=== PATIENT | female | born 1975 | race Caucasian/White ===

== ENCOUNTER 2016-11-01 22:42 | Emergency (ER) | payer OTHER ==
[2016-11-01 23:02] VITALS: BP 134/92
[2016-11-01] MEDS ORDERED: CYCLOBENZAPRINE 10 MG TABLET PO STA (23:38)
[2016-11-01] MEDS ORDERED: KETOROLAC 60 MG/2 ML VIAL IM STA (23:38)
[2016-11-01] MEDS ORDERED: DEXAMETHASONE 10 MG/ML VIAL PO STA (23:38)
--- NOTE | 2016-11-01 23:40 | ED Physician Documentation ---
History of Present Illness - Stated complaint Stated Complaint: NECK PX - Chief complaint Chief Complaint: General - History obtained from History obtained from: Patient - History of Present Illness Timing: Today Pain level max: 6 Pain level now: 5 Improved by: Rest Worsened by: movement - Additonal information Additional information: Patient is a 41-year-old female who presents to the emergency department with right shoulder and right arm pain that radiates down the right arm into the right fifth digit. Occasional tingling in that arm as well. She is currently being seen by physical therapy for her left arm for similar symptoms. No swelling. No trauma. 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 : None HEENT: None Psych: Depression, Bipolar disorder Musculoskeletal: Chronic back pain Derm: None - Past Surgical History 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 - Present Medications Home Medications: Ambulatory Orders Medication Instructions Recorded Confirmed Cyclobenzaprine [Flexeril] 10 mg PO TID PRN #20 tablet 11/01/16 Meloxicam [Mobic] 7.5 mg PO BID PRN #20 tablet 11/01/16 - Allergies Allergies/Adverse Reactions: Allergies Allergy/AdvReac Type Severity Reaction Status Date / Time No Known Drug Allergies Allergy Verified 11/01/16 23:02 - Social History Does the pt smoke?: No Smoking Status: Never smoker Does the pt drink ETOH?: Yes Does the pt have substance abuse?: No - Immunizations Immunizations are current?: Yes - POLST Patient has POLST: No PD ED PE NORMAL - Vitals Vital signs reviewed: Yes - General General: Alert and oriented X 3, No acute distress - HEENT HEENT: Moist mucous membranes - Neck Neck: Supple, no meningeal sign, No bony TTP, Other (Positive Spurling test to the right) - Cardiac Cardiac: RRR - Respiratory Respiratory: No respiratory distress, Clear bilaterally - Abdomen Abdomen: Soft, Non tender - Back Back: No spinal TTP - Derm Derm: Warm and dry - Extremities Extremities: No deformity, No tenderness to palpate, No edema - Neuro Neuro: Alert and oriented X 3, instrument and controls technician 2-12 intact, No motor deficit, No sensory deficit - Psych Psych: Normal mood, Normal affect Results - Vitals Vitals: Oxygen O2 Source Room air PD MEDICAL DECISION MAKING - ED course Complexity details: considered differential, d/w patient ED course: Patient is a 41-year-old female with what appears to be a right cervical radiculopathy. Will place on steroids and anti-inflammatories for home and follow-up with her doctor. She is well-appearing, nontoxic. We will also place on muscle relaxants. No fevers. No trauma. No DVT. Patient counseled regarding signs and symptoms for which I believe and urgent re-evaluation would be necessary. Patient with good understanding of and agreement to plan and is comfortable going home at this time This document was made in part using voice recognition software. While efforts are made to proofread this document, sound alike and grammatical errors may occur. Departure - Departure Disposition: Home, Self Care Clinical Impression: Cervical radiculopathy Condition: Good Instructions: ED Cervical Radiculopathy Follow-Up: Adamaris Garcia DO [Primary Care Provider] - Within 1 week Prescriptions: Cyclobenzaprine [Flexeril] 10 mg PO TID PRN #20 tablet PRN Reason: Spasms Meloxicam [Mobic] 7.5 mg PO BID PRN #20 tablet PRN Reason: pain Comments: Return if you worsen. This should improve over the next few days. Your blood pressure was elevated today on check in to the emergency department. This does not mean that you have hypertension, it is a common phenomenon to check into the emergency department and have elevated blood pressure. I recommend that you see your primary care physician within the week to have it rechecked when you're feeling better. Discharge Date/Time: 11/02/16 00:00
[2016-11-01] MEDS ORDERED: KETOROLAC 60 MG/2 ML VIAL ONE (23:41)
[2016-11-01] MEDS ORDERED: CHERRY SYRUP 10 ML UDC PO ONE (23:41)
[2016-11-01] MEDS ORDERED: DEXAMETHASONE 10 MG/ML VIAL ONE (23:41)
[2016-11-01] MEDS ORDERED: CYCLOBENZAPRINE 10 MG TABLET PO ONE (23:41)
== END 2016-11-02 | disposition home or self-care (01) ==
LOC: ED 22:42
DX: M54.12 Radiculopathy, cervical region (principal); R03.0 Elevated blood-pressure reading, without diagnosis of hypertension
CPT/HCPCS: 96372; 99283; A9270

== ENCOUNTER 2020-12-23 14:52 | Outpatient (CLI) | payer OTHER | END 2020-12-23 14:53 | disposition EMS.NT | LOC: EMS 14:52 | DX: R53.1 Weakness (principal); R06.02 Shortness of breath ==

== ENCOUNTER 2023-12-01 03:03 | Emergency (ER) | payer BC, OTHER ==
[2023-12-01 04:00] LABS: BASOPHILS # (AUTO) 0.1 10^3/uL (0.0-0.1); BASOPHILS % (AUTO) 0.7 %; EOSINOPHILS # (AUTO) 0.1 10^3/uL (0.0-0.7); EOSINOPHILS % (AUTO) 0.8 %; HCT - HEMATOCRIT 37.9 % (37.0-47.0); HGB - HEMOGLOBIN 12.9 g/dL (12.0-16.0); LYMPHOCYTES # (AUTO) 2.5 10^3/uL (1.5-3.5); LYMPHOCYTES % (AUTO) 29.2 %; MEAN CORPUSCULAR HEMOGLOBIN 30.8 pg (27.0-31.0); MEAN CORPUSCULAR VOLUME 90.5 fL (81.0-99.0); MEAN PLATELET VOLUME 10.4 fL (7.9-10.8); MONOCYTES # (AUTO) 0.9 10^3/uL (0.0-1.0); MONOCYTES % (AUTO) 10.3 %; NEUTROPHILS # (AUTO) 5.1 10^3/uL (1.5-6.6); NEUTROPHILS % (AUTO) 58.8 %; PLT - PLATELET COUNT 241 10^3/uL (130-450); RED BLOOD COUNT 4.19 10^6/uL (4.20-5.40); RED CELL DISTRIBUTION WIDTH 13.5 % (12.0-15.0); WHITE BLOOD COUNT 8.6 x10^3/uL (4.8-10.8)
[2023-12-01] MEDS: SODIUM CHLORIDE 0.9% 1,000 ML IV STA (04:00)
[2023-12-01 04:02] LABS: VBG PH 7.427 (7.31-7.41)
[2023-12-01 04:03] LABS: VBG BASE EXCESS 0.8 mmol/L (-2 - +2); VBG PCO2 38.8 mmHg (41-51); VBG PO2 32.5 mmHg (25-47); VBG TOTAL CO2 26.2 mmol/L (24-29)
[2023-12-01 04:14] LABS: B. PARAPERTUSSIS- RESP PCR PAN NOT DETECTED; B. PERTUSSIS- RESP PCR PANEL NOT DETECTED; C. PNEUMONIAE- RESP PCR PANEL NOT DETECTED; CORONAVIRUS 229E-RESP PCR NOT DETECTED; CORONAVIRUS HKU1-RESP PCR NOT DETECTED; CORONAVIRUS NL63-RESP PCR NOT DETECTED; CORONAVIRUS OC43-RESP PCR NOT DETECTED; HUMAN METAPNEUMOVIRUS NOT DETECTED; INFLUENZA A- RESP PCR PANEL NOT DETECTED; INFLUENZA B - RESP PCR PANEL NOT DETECTED; M. PNEUMONIAE- RESP PCR PANEL NOT DETECTED; PARAINFLUENZA VIRUS 1 NOT DETECTED; PARAINFLUENZA VIRUS 2 NOT DETECTED; PARAINFLUENZA VIRUS 3 NOT DETECTED; PARAINFLUENZA VIRUS 4 NOT DETECTED; RHINOVIRUS/ENTEROVIRUS NOT DETECTED; RSV- RESP PCR PANEL NOT DETECTED; SARS-CoV-2 -RESP PCR PANEL NOT DETECTED
[2023-12-01 04:18] LABS: ALBUMIN/GLOBULIN RATIO 1.3 (1.0-2.2); BILIRUBIN,TOTAL 0.3 mg/dL (0.2-1.0); CALCIUM 9.1 mg/dL (8.5-10.3); CREATININE 0.6 mg/dL (0.6-1.3); POTASSIUM 3.4 mmol/L (3.5-4.5); TOTAL PROTEIN 7.1 g/dL (6.4-8.9)
--- NOTE | 2023-12-01 04:22 | ED Physician Documentation ---
History of Present Illness - Stated complaint Stated Complaint: COUGH - Chief complaint Chief Complaint: Resp - History obtained from History obtained from: Patient - Additonal information Additional information: 48-year-old woman previously healthy presents with 1 week of viral URI symptoms (tickle in throat, cough), placed on prednisone and albuterol by primary care provider, presents with persistent cough. Denies fever, leg swelling, dizziness, chest pain. She did have 1 episode of blood-streaked cough. Not on hormones. 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 - Present Medications Home Medications: Ambulatory Orders Medication Instructions Recorded Confirmed Cyclobenzaprine [Flexeril] 10 mg PO TID PRN #20 tablet 11/01/16 Meloxicam [Mobic] 7.5 mg PO BID PRN #20 tablet 11/01/16 - Allergies Allergies/Adverse Reactions: Allergies Allergy/AdvReac Type Severity Reaction Status Date / Time No Known Drug Allergies Allergy Verified 12/01/23 03:17 - Social History Does the pt smoke?: No Smoking Status: Never smoker Does the pt drink ETOH?: Yes Does the pt have substance abuse?: No - Immunizations Immunizations are current?: Yes - POLST Patient has POLST: No PD ED PE NORMAL - Vitals Vital signs reviewed: Yes - General General: Alert and oriented X 3, No acute distress, Well developed/nourished - HEENT HEENT: Atraumatic, PERRL, EOMI - Neck Neck: Supple, no meningeal sign - Cardiac Cardiac: RRR - Respiratory Respiratory: No respiratory distress, Clear bilaterally - Abdomen Abdomen: Non tender, Non distended Results - Vitals Vitals: Vital Signs - 24 hr 12/01/23 03:12 Temperature 36.0 C L Heart Rate 85 Respiratory 18 Rate Blood Pressure 133/98 H O2 Saturation 100 Oxygen O2 Source Room air - Labs Labs: Laboratory Tests 12/01/23 12/01/23 12/01/23 03:17 03:53 03:53 WBC 8.6 RBC 4.19 L Hgb 12.9 Hct 37.9 MCV 90.5 MCH 30.8 MCHC 34.0 RDW 13.5 Plt Count 241 MPV 10.4 Neut # (Auto) 5.1 Lymph # (Auto) 2.5 Emmons # (Auto) 0.9 Eos # (Auto) 0.1 Baso # (Auto) 0.1 Absolute Nucleated RBC 0.00 Nucleated RBC % 0.0 VBG pH 7.427 H VBG pCO2 38.8 L VBG pO2 32.5 VBG HCO3 25.0 VBG Total CO2 26.2 VBG O2 Saturation 70.0 VBG Base Excess 0.8 Nasal Adenovirus (PCR) NOT DETECTED Nasal B. parapertussis DNA (PCR) NOT DETECTED Nasal Coronavir 229E PCR NOT DETECTED Nasal Coronavir HKU1 PCR NOT DETECTED Nasal Coronavir NL63 PCR NOT DETECTED Nasal Coronavir OC43 PCR NOT DETECTED Nasal Enterovir/Rhinovir PCR NOT DETECTED Nasal Influenza B PCR NOT DETECTED Nasal Influenza A PCR NOT DETECTED Nasal Parainfluen 1 PCR NOT DETECTED Nasal Parainfluen 2 PCR NOT DETECTED Nasal Parainfluen 3 PCR NOT DETECTED Nasal Parainfluen 4 PCR NOT DETECTED Nasal RSV (PCR) NOT DETECTED Nasal B.pertussis DNA PCR NOT DETECTED Nasal C.pneumoniae (PCR) NOT DETECTED Flaquito Human Metapneumo PCR NOT DETECTED Nasal M.pneumoniae (PCR) NOT DETECTED Nasal SARS-CoV-2 (PCR) NOT DETECTED PD Medical Decision Making - ED course ED course: 48yF p/w cough X 1 week, with benign vitals, exam, cxr, and labs. Plan to f/u outpatient with pcp. symptomatic care discussed. return precautions given Departure - Departure Disposition: 01 Home, Self Care Clinical Impression: Shortness of breath Condition: Stable Instructions: ED Dyspnea Shortness of Breath Comments: You were seen in the emergency department for Evaluation of shortness of breath. Your lab work and chest x-ray look benign as well as your physical exam. Please follow-up with your primary care provider and return to the emergency department if you have any new or worsening symptoms or other concerns. Forms: PCP List
[2023-12-01 04:32] VITALS: BP 133/82; O2SAT 99
--- NOTE | 2023-12-01 09:24 | XRAY Report ---
PROCEDURE: Chest 2V INDICATIONS: cough TECHNIQUE: 2 views of the chest were acquired. COMPARISON: None. FINDINGS: Surgical changes and devices: None. Lungs and pleura: Mild bilateral interstitial prominence may represent a viral or atypical pneumonia versus prominent normal lung markings. No pleural effusion or pneumothorax. Mediastinum: Mediastinal contours appear normal. Heart size is normal. Bones and chest wall: No suspicious bony lesions. Overlying soft tissues appear unremarkable. IMPRESSION: Questionable mild interstitial prominence could indicate a viral or atypical pneumonia and clinical c orrelation is recommended. Reviewed by: Jaleel Parks MD on 12/01/2023 9:23 AM PDT Approved by: Jaleel Parks MD on 12/01/2023 9:23 AM PDT Station ID: [id number]
== END 2023-12-01 04:29 | disposition home or self-care (01) ==
LOC: ED 03:03
DX: R06.02 Shortness of breath (principal)
CPT/HCPCS: 36415; 80053; 82803; 83690; 85025; 87633; 99283; 99284